=== PATIENT | female | born 1990 | race African-American/Black ===

== ENCOUNTER 2025-03-14 16:24 | Emergency (ER) | payer OTHER ==
[2025-03-14] MEDS: LIDOCAINE 5% TOPICAL PATCH TP ONE (16:59)
[2025-03-14] MEDS: KETOROLAC TROMETHAMINE 60 MG/2 ML VIAL IM ONE (17:01)
[2025-03-14 17:27] VITALS: BP 130/90; PULSE 77; RESP 20; TEMP 98.4; BMI 37.0
[2025-03-15] MEDS ORDERED: LIDOCAINE PATCH REMOVAL MC SCH (05:00)
== END 2025-03-14 17:29 | disposition home or self-care (01) ==
LOC: FER 16:24
PROC: 3E0233Z Introduction of Anti-inflammatory into Muscle, Percutaneous Approach (ICD-10-PCS; principal; 2025-03-14)
DX: S13.4XXA Sprain of ligaments of cervical spine, initial encounter (principal); V89.2XXA Person injured in unspecified motor-vehicle accident, traffic, initial encounter
CPT/HCPCS: 99284-25